=== PATIENT | male | born 1970 | race Caucasian/White ===

== ENCOUNTER 2018-01-04 11:19 | Day surgery (SDC) | payer BC, OTHER ==
--- NOTE | 2018-01-03 21:52 | PDGENHP ---
History and Physical - Chief Complaint Right Hip Pain - History of Present Illness Diagnosis: 1. Bilateral~Femoroacetabular impingement (THADDEUS) Cam type,~with~resultant labral tear; RIGHT SIDE SYMPTOMATIC HISTORY OF PRESENT ILLNESS: Luisis a 47 y.o.~very~~active male~who I have had the pleasure to consult on today. I have enjoyed meeting him.~He~lives in [place].~~Paramjit~works in IT.~~He~is ;~he~has 3~children. ~Luisenjoys spinning, cycling, and skiing. Paramjit returns to clinic with persistent Right Hip pain that is worse with activity, at rest his pain has increased, his Left hip pain has resolved. Presentation today is of~anterior, posterior, lateral~right~hip pain.~~The hip~ does not~wake him~at night and does not~click and catch on him. Sitting~does not present a problem~for him.~Luisdoes not~report suffering from lower back pain episodes. Luishas~participated in physical therapy (six weeks)~and has not~tried other conservative measures. Luishas~utilized medication for pain management, including NSAID.~Luis has used medication since the pain began. Luisdenies issues with the left~hip. ~ Luisunderstands that he~has a hip and pelvis problem which should be researched and wishes to get a better understanding of his~hip status, followed by an establishment of a treatment strategy, hoping he~would be able to get back to his~well being active life. History: Past medical history:~~ None which is relevant~ Relevant familial history:~None which is relevant~ Past surgical history:~ No. Surgery Anesthesia 1 appendectomy general Luisdenies problematic issues with general anesthesia in the past. I have reviewed, verified and agree with the past medical, surgical, family and social history. Current Medications:~currently has no medications in their medication list. ALLERGIES:~has No Known Allergies. Objective: Physical Examination: Luisis 6~feet 2~inches tall and weighs 225~Lbs. Luisis AAO x3; he~is well-nourished, in NAD. Skin is warm and dry. ~Breathing is non-labored. ~CV with RRR by pulse. Abdomen is soft, NTND. Currently,~he~walks with a normal~gait. Trendelenburg sign is~negative~and proprioception is normal,~both~sides. He~presents with mild~signs of joint laxity. Beightons Score:~4 Lower spine examination is~negative~for sciatic or femoral nerve irritation with negative~SLR &~femoral stretch tests. Range of motion of the spine is normal~for flexion, extension, and rotations, with no~associated pain. Strength, Sensation and pulses are~normal -~bilaterally Ankles and knees exams are~normal~and no~mal-alignment is evident. He~has no leg length discrepancy. Thigh circumference is~symmetric~with no evidence for muscle atrophy~on both~ sides. Hip ROM (degrees): FL ER At 90~hip FL IR At 90~hip FL AB AD EX IR Neutral hip ER Neutral hip R 100 50 20 40 5 5 40 45 L 105 50 20 40 5 5 40 45 Specific hip and pelvis tests: Impingement Test OSMAR Roll R +++ +++ Negative L Negative Negative Negative Glut. Med ITB R Negative 5/5 strength Negative 5/5 strength L Negative 5/5 strength Negative 5/5 strength Squeeze test measured~strong Bony Symphysis pubis is~pain free~to touch while concentric activity of the rectus abdominis, does not~produce pain at its insertion. Ilio Psos specific tests are~negative for pain during cycling for~both hips~and no snap. Greater trochanteric burse is~pain free~on both hips. Piriformis tests: FAIR is~negative,~with no~local signs of neuritis related to sciatic nerve. SIJs examination is~normal~with normal~OSMAR in relation and local tenderness. Hamstrings tests are~negative~functional contraction and negative~tendinopathy both hips. Imaging: Radiology studies which I have personally reviewed, analyzed and measured are below: XR: AP of the hip and pelvis: Performed in a~good~technique Coccyx to pubic symphysis distance~2~cm. 15~degrees caudal [place] Lines are~preserved. Minimal~Pathological signs are seen in the Symphysis Pubis. Minimal~Pathological signs are seen at the Ischial tuberosity. ~ Specific measurements show: NSA~ LCE Sourcil~Angle Sharp's angle Lat. Cam Lat. Pincer C.Over~sign Head~Coverage % ATDmm R N 28 3 39 + - - N N L N 24 4 45 + - - N N Pos. wall sign ISS NAD ~~Dysplasia Comments R Negative Negative 11.7~mm Negative L Negative Negative 15~mm Negative Sclerosis Sup. Lat. OA Cysts Joint Space-WBZ Joint Space-Medial R Negative Negative Negative 4.7~mm 5.3~mm L Negative Negative Negative 5.4~mm 5.7~mm X Table lateral: Anterior cam lesion is~seen~on both hips. Alpha Angle: ~ Right~67~dergrees Left~63~degrees Impression and plan: ~ Paramjit~is a 47 y.o.~active male~suffering from symptomatic Right~hip pain due to Right~Femoroacetabular impingement (THADDEUS) Cam type,~with~resultant labral tear ~causing significant disability to him~and altering his~sport and life activities. Physical examination, imaging, and~his~story correspond with the diagnosis mentioned above. I explained that femoroacetabular impingement (THADDEUS) arises due to a bony or soft tissue conflict between the femur (ball) and acetabulum (socket) caused by an abnormality in the shape of the hip joint. Over time, repetitive impingement can result in damage to the labrum and adjacent surface cartilage within the socket, ultimately giving rise to progressive osteoarthritis of the hip. I explained that although a labral tear can be a source of pain, it is rarely the root of the problem and typically occurs secondary to an underlying abnormality in the shape and mechanics of the hip joint. ~ I reviewed conservative treatment options for THADDEUS including activity modification to avoid positions of impingement, physical therapy, non-steroidal anti-inflammatory medications, and various injections (corticosteroid and PRP) aimed at reducing inflammation in the hip joint or/and preventing dynamic impingement. PRP injections may promote healing and reduce symptoms in certain cases but it will not repair chronically damaged tissue. Although these measures may help to buy time and reduce current level of symptoms, they are not a definitive solution to the problem given the underlying abnormality in the shape of the hip joint. Patients who have failed conservative management and continue to experience symptoms are candidates for hip arthroscopy, a minimally invasive surgery that can definitively address the underlying problem. Hip arthroscopy typically includes treating the labrum with either repair or reconstruction of the torn labrum; as well as addressing the underlying abnormalities by restoring the normal shape to the hip joint. ~If the cartilage is damaged a Microfracture surgical procedure may also be necessary to help stimulate the growth of fibrocartilage. ~If a patient requires a labral reconstruction or a Microfracture, the initial rehabilitation from the surgery may take longer, but the salvage determiner results are typically favorable. I reviewed the technical aspects of hip arthroscopy including risks, benefits, and expected course of recovery.~Luisunderstands that hip arthroscopy is a minimally invasive outpatient procedure carried out through small incisions on the outer aspect of the hip joint. During surgery, the labral tear will be identified and either repaired or reconstructed~using bone anchors and suture material. Additionally, any excessive bone will be removed with a high-speed clraice to reshape the hip joint and restore normal anatomy. Risks include infection, bleeding, injury to nearby nerves or vessels, stiffness, persistent pain, instability, venous thromboembolic disease, and traction related complications including temporary foot numbness. Rarely, revision surgery may be required to address these problems. Overall recovery takes approximately 4~ 8~months depending on the extent of damage and degree of repair. In the event that the labral tissue quality is inadequate for successful repair and healing,~Luisunderstands that a labral reconstruction will be performed. This procedure entails placing a cadaver tissue graft within the hip joint and stabilizing it with bone anchors to build a new labrum. The overall recovery time for labral reconstruction is similar to that of labral repair, although the surgical procedure takes longer to perform. Luiswill review the info presented. In order to obtain more detailed information regarding the alignment, orientation, and shape of the bony hip and pelvis I will order a CT scan to be performed. The results of the CT scan, including femoral torsion and acetabular version measured values and 3D images, will aid me in deciding on the best treatment strategy and surgical pre-planning. In order to better evaluate the soft tissues and cartilage of the hip joint, I will order an MRI scan. Luiswill talk with our surgical corsetier about possible surgery dates. Luisis happy with this plan. I have also supplied~swetha~with handouts, outlining the expected surgical treatment and rehab involved. I wish~Luisall the best, ~~ Floyd Velasquez, PAC History Information - Allergies/Home Medication List Allergies/Adverse Reactions: No Known Allergies Allergy (Verified 12/23/17 13:44) I have personally reviewed and updated: medical history - Social History Smoking Status: Never smoked Review of Systems Review of Systems: Physical Exam Physical Exam:
[2018-01-04] MEDS ORDERED: PREGABALIN 150 MG CAP PO ONE (11:24)
[2018-01-04] MEDS ORDERED: ACETAMINOPHEN 500 MG TAB PO ONE (11:24)
[2018-01-04] MEDS ORDERED: ceFAZolin 2 GM/DEXTROSE 100 ML IV ONE (11:24)
[2018-01-04] MEDS ORDERED: LR 1,000 ML IV ONE (11:26)
[2018-01-04] MEDS ORDERED: MIDAZOLAM 2 MG/2 ML VIAL ONE (11:46)
[2018-01-04] MEDS ORDERED: PROPOFOL/EMULSION 500 MG/50 ML BOTTLE IV ONE ×2 (11:46→13:31)
[2018-01-04] MEDS ORDERED: fentaNYL 100 MCG/2 ML INJ ONE (11:46)
[2018-01-04] MEDS ORDERED: PROPOFOL 200 MG/20 ML VIAL ONE ×2 (11:49→15:04)
[2018-01-04] MEDS ORDERED: BUPIVACAINE 0.25% 30 ML SDV ONE (11:54)
[2018-01-04] MEDS ORDERED: EPINEPHrine 1 MG/ML INJ ONE (11:54)
--- NOTE | 2018-01-04 11:58 | PDANEPAE ---
ANE Past Medical History - Cardiovascular History Hx Hypertension: No Hx Arrhythmias: No Hx Chest Pain: No Hx Coronary Artery / Peripheral Vascular Disease: No Hx CHF / Valvular Disease: No Hx Palpitations: No - Pulmonary History Hx COPD: No Hx Asthma/Reactive Airway Disease: No Hx Recent Upper Respiratory Infection: No Hx Oxygen in Use at Home: No Hx Sleep Apnea: No Sleep Apnea Screening Result - Last Documented: Negative - Neurologic History Hx Cerebrovascular Accident: No Hx Seizures: No Hx Dementia: No - Endocrine History Hx Diabetes: No - Renal History Hx Renal Disorders: No - Liver History Hx Hepatic Disorders: No - Neurological & Psychiatric Hx Hx Neurological and Psychiatric Disorders: No - Cancer History Hx Cancer: Yes Cancer History Comment: basal cell CA, ear - Congenital Disorder History Hx Congenital Disorders: No - GI History Hx Gastrointestinal Disorders: No - Other Health History Other Health History: denies - Chronic Pain History Chronic Pain: No - Surgical History Prior Surgeries: appendectomy. MOHS procedure ANE Review of Systems Review of Systems: - Exercise capacity METS (RN): 5 METS ANE Patient History - Allergies Allergies/Adverse Reactions: No Known Allergies Allergy (Verified 12/23/17 13:44) - Home Medications Home Medications: NK [No Known Home Meds] 01/04/18 [Last Taken Unknown] - NPO status NPO Since - Liquids (Date): 01/04/18 NPO Since - Liquids (Time): 09:30 NPO Since - Solids (Date): 01/04/18 NPO Since - Solids (Time): 05:00 - Smoking Hx Smoking Status: Never smoked - Family Anes Hx Family Hx Anesthesia Complications: none ANE Labs/Vital Signs - Vital Signs Blood Pressure: 106/70 Heart Rate: 84 Respiratory Rate: 16 O2 Sat (%): 97 Height: 187.96 cm Weight: 102.058 kg ANE Physical Exam - Airway Neck exam: FROM Mallampati Score: Class 1 Mouth exam: normal dental/mouth exam - Pulmonary Pulmonary: no respiratory distress, no rales or rhonchi, clear to auscultation - Cardiovascular Cardiovascular: regular rate and rhythym, no murmur, rub, or gallop - ASA Status ASA Status: I ANE Anesthesia Plan Anesthesia Plan: general endotracheal anesthesia
[2018-01-04] MEDS ORDERED: ROCURONIUM 100 MG/10 ML VIAL ONE (12:05)
[2018-01-04] MEDS ORDERED: KETOROLAC 30 MG/1 ML SDV ONE (12:05)
[2018-01-04] MEDS ORDERED: RANITIDINE 50 MG/2 ML VIAL ONE (12:05)
[2018-01-04] MEDS ORDERED: ONDANSETRON 4 MG/2 ML VIAL ONE (12:05)
[2018-01-04] MEDS ORDERED: METOCLOPRAMIDE 10 MG/2 ML VIAL ONE (12:05)
[2018-01-04] MEDS ORDERED: SUGAMMADEX SODIUM 200 MG/2 ML VIAL IVP ONE (12:05)
[2018-01-04] MEDS ORDERED: ALBUTEROL 3 ML DEYVIAL IH PRN (15:10)
[2018-01-04] MEDS ORDERED: PROMETHAZINE HCL 25 MG/ML INJ IVP PRN (15:10)
[2018-01-04] MEDS ORDERED: NALOXONE HCL 0.4 MG/ML INJ IVP PRN (15:10)
[2018-01-04] MEDS ORDERED: METOCLOPRAMIDE 10 MG/2 ML VIAL IVP PRN (15:10)
[2018-01-04] MEDS ORDERED: ONDANSETRON 4 MG/2 ML VIAL IVP PRN (15:10)
[2018-01-04] MEDS ORDERED: LR 500 ML IV PRN (15:10)
[2018-01-04] MEDS ORDERED: oxyCODONE IR 5 MG TAB PO PRN (15:10)
[2018-01-04] MEDS ORDERED: DIAZEPAM 5 MG/ML 1 ML SYR IVP PRN (15:10)
[2018-01-04] MEDS ORDERED: HYDROCODONE/APAP 5/325 TAB PO PRN (15:10)
[2018-01-04] MEDS ORDERED: MEPERIDINE 25 MG/0.5 ML AMP IVP PRN (15:10)
[2018-01-04] MEDS ORDERED: fentaNYL 100 MCG/2 ML INJ IVP PRN (15:10)
[2018-01-04] MEDS ORDERED: ACETAMINOPHEN 500 MG TAB PO PRN (15:10)
--- NOTE | 2018-01-04 16:16 | POSTOPPROG ---
Post Op Note Date of Operation: 01/04/18 Surgeon: Mohamud Moran Lip Reading Teacher: Dr. Peterson Anesthesia: GET(General Endotracheal) Pre-op Diagnosis: Right THADDEUS Post-op Diagnosis: Right THADDEUS Procedure: Right Hip Arthroscopy Inf/Abcess present in the surg proc area at time of surgery?: No EBL: Minimal
--- NOTE | 2018-01-04 17:02 | POSTANESTH ---
Post Anesthetic Evaluation Cardiovascular Status: Normal, Stable, Similar to Pre-Op Cond, Tx Over/Under Hydration Respiratory Status: Normal, Stable Level of Consciousness/Mental Status: Moderately Sleepy Pain Control: Adequate, Prn Tx Ordered Nausea/Vomiting Control: Adequate, Prn Tx Ordered Complications Possibly Related to Anesthesia: None Noted
[2018-01-04 17:58] VITALS: BP 91/50
== END 2018-01-04 17:55 | disposition home or self-care (01) ==
LOC: FSGY 11:19
PROVIDERS: ATTEND Orthopaedic Surgery Sports Medicine
PROC: 0SQ94ZZ Repair Right Hip Joint, Percutaneous Endoscopic Approach (ICD-10-PCS; principal; 2018-01-04 12:45)
DX: M25.851 Other specified joint disorders, right hip (principal)
CPT/HCPCS: C1713; J0171; J0690; J1885; J2250; J2405; J2704; J2765; J2780; J3010